=== PATIENT | male | born 1995 | race Two or more races ===

== ENCOUNTER 2024-02-14 12:09 | Emergency (ER) | payer OTHER, SELFPAY ==
--- NOTE | ~2024-02-14 | CT_ITS ---
EXAMINATION: CT SOFT TISSUE NECK WITH CONTRAST CLINICAL INFORMATION: Left parotid swelling. COMPARISON: There are no prior studies available for comparison. TECHNIQUE: Following the intravenous administration of 60 mL of Omnipaque 350 intravenous contrast, helical imaging was performed in the axial plane with generation of coronal and sagittal reformatted images. A few noncontrast images were obtained through the region of interest with a BB marker in place. This CT examination was performed using dose optimization techniques as appropriate, variously including the following: *Automated exposure control *Adjustment of mA and/or kV according to patient size (this includes techniques or standardized protocols for targeted exams where dose is matched to indication/reason for exam; i.e. extremities or head) *Use of iterative reconstruction technique DLP: 706 mGy-cm FINDINGS: There is a 2.4 x 3.3 x 4.1 cm (oblique AP, transverse and craniocaudal) mass in the superficial lobe of the parotid gland, and extends through the mandibular notch. It has low but heterogenous attenuation. There is no cervical lymphadenopathy. There are small lymph nodes at multiple levels in the neck bilaterally. The right parotid gland and the bilateral submandibular glands appear normal. No contour abnormality or pathologic enhancement is seen within the oral cavity or pharyngeal mucosal space. The laryngeal structures are normal. The parapharyngeal fat is preserved. The carotid sheath vasculature opacifies normally. No extra mucosal soft tissue mass or fluid collection is seen. No retropharyngeal fluid collection is seen. The thyroid gland is normal. The left vertebral artery arises directly off the aortic arch which is a normal variant. The visualized upper lung tejada are well-aerated. The mastoid air cells are well-aerated. There is moderate to extensive circumferential mucoperiosteal thickening with aerosolized secretions in the left maxillary sinus; there is also a fluid level. Mucoperiosteal thickening is also seen in the right maxillary and bilateral ethmoid sinuses. The temporomandibular joints are normal. No periapical disease is identified. The cervical spine appears normal. The imaged portions of the brain parenchyma are unremarkable. CT/CT soft tissue neck w IV con IMPRESSION: 1. There is a 4.1 cm mass in the superficial lobe of the left parotid gland, extending through the mandibular notch. This may be consistent with a pleomorphic adenoma, but other etiologies cannot be excluded. 2. There is no cervical lymphadenopathy. No other masses are demonstrated. 3. There is paranasal sinus disease as described above.
[2024-02-14 12:20] VITALS: BP 149/105; PULSE 70; RESP 18; TEMP 36.6; O2SAT 97; BMI 23.6
--- NOTE | 2024-02-14 12:20 | ED.GENADULT ---
HPI - General Adult General Chief complaint: Urogenital-Male Stated complaint: Blood in urine/R side facial pain Time Seen by Provider: 02/14/24 12:47 Source: patient and RN notes reviewed Mode of arrival: ambulatory Limitations: no limitations History of Present Illness ED Provider: Keisha Romero PA-C HPI narrative: This is a 28-year-old male, with no known medical problems, who presents emergency department complaints of left-sided facial swelling for the last year and a half, dysuria x 2 days. Patient reports that after he received the COVID vaccine a year and a half ago he noticed left-sided facial swelling. He states that this has increased in size and he has never had this imaged. He reports that the area is painful. He also reports that over the last 2 days he has had dysuria, and slight blood in the urine. He also reports some blood after having sexual intercourse. He denies any new partners. He denies any fevers, chills, chest pain, shortness of breath, abdominal pain, nausea, vomiting or diarrhea. No significant weight changes. No night sweats. He has also endorsing a itchy rash to the back of his neck and in between his fingers. He cleans houses for a living and states that he believes he was in contact with bedbugs or something causing an allergy. No other complaints or concerns at this time. MD complaint: Facial swelling, dysuria Pain Consistency: constant Relieving factors: none Exacerbating factors: none Associated symptoms: denies other symptoms Treatments prior to arrival: none Related Data Previous Rx's ?Medication ?Instructions ?Recorded doxycycline hyclate 100 mg tablet 100 mg PO BID 7 days #13 tabs 02/14/24 diphenhydramine HCl 25 mg capsule 25 mg PO TID PRN itching #20 caps 02/15/24 permethrin 5 % topical cream 1 appl topical Q14D 2 doses #60 02/15/24 grams Allergies Allergy/AdvReac Type Severity Reaction Status Date / Time No Known Allergies Allergy Verified 02/14/24 12:23 Review of Systems Review of Systems: Yes all other systems are reviewed and are negative Constitutional: Constitutional: Reports as per [facility] Social History Social History Smoked in Last 30 Days: No Use of substances other than those prescribed or required for medical reasons: Yes Substance Use Type: Crack/Cocaine Advance Directives: No Advance Directives Information Provided: Yes Physical Exam ED Vital Signs: Vital Signs - 24 hr 02/14/24 12:20 02/14/24 15:12 Temperature 97.9 F 98.1 F Pulse Rate 70 59 Respiratory Rate 18 16 Blood Pressure 149/105 H 139/50 L Pulse Oximetry 97 97 Oxygen Delivery Method Room Air Room Air BMI result Body Mass Index 23.6 Const General: cooperative, comfortable and no acute distress Orientation/consciousness: patient oriented x3 Limitations: no limitations HENMT Head: Yes normal to inspection, Yes normocephalic and Yes atraumatic Ears: hearing grossly normal bilaterally General nose exam: Normal external nose present Face and sinus: Yes normal facial exam Mouth: Normal oral and palatal mucosa present, oropharynx normal and moist mucous membranes Throat: Yes posterior oropharynx normal Eyes General: appearance normal, both eyes and all related structures Eyelids: Yes eyelids normal Conjunctivae: conjunctivae normal Sclerae: sclerae normal Pupils: Equal, round and reactive pupils present EOM: EOMs intact bilaterally Neck Other: Left parotid region there is a large indurated mass, non mobile. No surrounding erythema or warmth. No anterior-posterior lymphadenopathy noted or subclavicular lymphadenopathy noted Lymphatic: no lymphadenopathy noted Chest Chest palpation & inspection: normal inspection of the chest Resp Effort & Inspection: normal respiratory effort and able to speak in complete sentences Auscultation: clear to auscultation bilaterally, no crackles, no rales, no rhonchi and no wheezes Cardio Rate: regular rate Rhythm: regular rhythm Heart sounds: S1 normal heart sound present and S2 normal heart sound present GI Inspection: Yes normal to inspection Skin General skin exam: no rashes or lesions noted Trauma: no lacerations or abrasions Wounds: no wounds Neuro General: patient oriented x3 and moves all extremities Cranial nerves: Yes Equal, round and reactive pupils present Extrem General: Yes normal to inspection Right upper extremity: normal to inspection Left upper extremity: normal to inspection Right lower extremity: normal to inspection Left lower extremity: normal to inspection Course Course Course Narrative: This is a rapid medical exam performed by Mansi Shaikh NP: Additional HPI, ROS, PE not included below will be deferred to primary provider. Patient is a 28-year-old male presenting to the ED with complaint of hematuria, left lower back pain. Denies fevers. Also reports right sided facial pain/swelling since having Covid over one year ago. Plan: labs, UA, CT NG urine Reevaluation(s) Reevaluation #1: Urine returns, there is high wbc's, moderate leuk esterases moderate blood. This does appear to be contaminated. Patient wanting treatment for STIs. Will treat with ceftriaxone and doxycycline. Will await urine culture to ensure that this is not a urinary tract infection. Discussed findings with patient. CT of the soft tissue neck revealing a 4.1cm mass in the superficial lobe of the left parotid gland extending through the mandibular notch. Consistent with a pleomorphic adenoma however other etiologies can not be excluded. I discussed findings with my attending physician, recommending ENT follow-up. There is no emergent interventions warranted at this time however I stressed with patient to call ENT tomorrow for further workup. He understands and agrees with plan. Patient given strict return precautions. He understands and agrees with plan. Patient stable for discharge. Time: 17:03 Reevaluation #2: Attempted to call patient as patient is chlamydia test was positive. He was treated appropriately. His phone number is out of service. Called emergency contact, Maritza, and instructed her to call her brother to have him contact the ER Reevaluation #3: pt returned call, given results from +chlamydia testing, advised to continue treatment and to inform all partners of test. He understands and has no further questions. Medications Administered Discontinued Medications Generic Name Dose Route Start Last Admin Trade Name Rosa PRN Reason Stop Dose Admin Ceftriaxone Sodium 500 mg/ 0 mg 02/14/24 16:55 02/14/24 17:25 Lidocaine HCl 1 ml IM 02/14/24 16:56 500 kit ONCE ONE Administration Doxycycline Monohydrate 100 mg 02/14/24 16:55 02/14/24 17:25 Doxycycline Monohydrate 100 Mg Capsule PO 02/14/24 16:56 100 mg ONCE ONE Administration Iohexol 100 ml 02/14/24 14:11 02/14/24 14:12 Iohexol 350 Mg/Ml 100 Ml Infus..Btl IV 02/14/24 14:12 60 ml ONCE ONE Administration Medical Decision Making Medical Decision Making MDM Narrative: This is a 28-year-old male who presents to the emergency department with complaints of rash, mass on the left side of his neck, and dysuria. Patient states that he cleaned out a home 2 weeks ago and developed a itchy rash. On examination, patient has faint macular papular rash noted to the back of neck, and webspace of fingers, no palmar erythema or rash noted. On arrival, vital signs within normal limits. Patient does have a large left-sided parotid area indurated mass noted, speaking in full sentences, under no acute respiratory distress. Patient was examined by my attending physician, Dr. Peter . Will obtain basic labs, UA, CT NG, and CT soft tissue of the neck. Differential Diagnosis Differential Diagnoses: The differential diagnosis associated with the presentation includes Malignancy, mass, parotitis, sialadenitis Admission/Observation Consideration of admission/observation: Escalation of care including admission/observation considered Escalation of care including admission/observation considered however given workup today not warranted at this time. Lab Data MDM Lab Attestation statement: I reviewed the patient's lab results. No leukocytosis, stable H&H, chemistry within normal limits. Urine with high specific gravity, moderate blood, moderate leuk esterases, rbc's, and high wbc's. Chlamydia and gonorrhea testing pending 02/14/24 12:28 02/14/24 12:28 Labs: Lab Results 02/14/24 02/14/24 Range/Units 12:28 15:18 WBC 10.1 (4.8-10.8) X10*3/uL RBC 5.26 (4.60-5.80) X10*6/uL Hgb 16.2 (14.0-18.0) g/dl Hct 46.3 (42.0-52.0) % MCV 88.0 (80.0-98.0) fL MCH 30.8 (27.0-33.0) pg MCHC 35.0 (31.0-36.0) g/dl RDW 12.4 (11.0-16.0) % Plt Count 221 (160-400) X10*3/uL MPV 9.3 L (9.4-12.4) fL Immature Gran % (Auto) 0.8 H (0.0-0.4) % Neut % (Auto) 54.5 (45-73) % Lymph % (Auto) 29.2 (20-40) % [place] % (Auto) 11.0 (2-11) % Eos % (Auto) 3.8 (0-4) % Baso % (Auto) 0.7 (0-2) % Lymph # (Auto) 3.0 (1.2-4.9) X10*3/uL [place] # (Auto) 1.1 (0.1-1.2) X10*3/uL Eos # (Auto) 0.4 (0.0-0.4) X10*3/uL Baso # (Auto) 0.1 (0.0-0.2) X10*3/uL Abs Immat Gran (auto) 0.08 H (0.00-0.03) X10*3/uL Absolute Neuts (auto) 5.5 (2.0-8.3) x10*3/uL Absolute Nucleated RBC 0.000 (0.0-0.012) X10*3/uL Nucleated RBC % (auto) 0.0 (0.0-0.2) /100WBC Sodium 140 (135-145) mmol/L Potassium 4.1 (3.3-5.1) mmol/L Chloride 108 (96-108) mmol/L Carbon Dioxide 25 (22-29) mmol/L Anion Gap 11 L (12-20) BUN 12 (9-16) mg/dL Creatinine 0.95 (0.5-1.4) mg/dL Estim Creat Clear Calc 111.0 Estimated GFR > 60 Random Glucose 94 (60-115) mg/dL Calcium 9.7 (8.4-10.2) mg/dL Total Bilirubin 0.3 (0.0-1.0) mg/dL AST 35 (5-37) U/L ALT 29 (0-40) U/L Alkaline Phosphatase 76 (39-117) U/L Total Protein 7.7 (6.5-8.0) g/dL Albumin 4.5 (3.5-5.0) g/dL Urine Color Yellow Urine Appearance Clear Urine pH 6.0 (5.0-9.0) Ur Specific [place] >= 1.030 H (1.005-1.025) Urine Protein Trace (Neg-Trace) mg/dL Urine Glucose (UA) Negative (Negative) mg/dL Urine Ketones Negative (Negative) mg/dL Urine Blood Moderate (2+) H (Negative) Urine Nitrite Negative (Negative) Ur Leukocyte Esterase Moderate (2+) H (Negative) Urine RBC 6-10 H (0-2) /HPF Urine WBC >50 H (0-5) /HPF Ur Squamous Epith Cells 3-5 (0-2) /HPF Urine Bacteria None Seen (None Seen) Hyaline Casts 0-2 (0-2) /LPF Chlam trachomat DNA PCR DETECTED A (Not Detect.) N.gonorrhoeae DNA (PCR) NOT DETECTED (Not Detect.) Radiology Impression Discussion of test interpretation with radiology: I have reviewed the radiologist's reading. Radiologist Impression: CT/CT soft tissue neck w IV con IMPRESSION: 1. There is a 4.1 cm mass in the superficial lobe of the left parotid gland, extending through the mandibular notch. This may be consistent with a pleomorphic adenoma, but other etiologies cannot be excluded. 2. There is no cervical lymphadenopathy. No other masses are demonstrated. 3. There is paranasal sinus disease as described above. Dictated By: KWASI ARSHAD MD External Record Review External record reviewed: Inpatient record, Office record, Outpatient record, Prior outpatient labs, Prior outpatient radiology, Primary care record and Outside ED record Discharge Plan Discharge Clinical Impression: Dysuria, Rash Patient Disposition: Home, Self-Care Instructions: Acute Rash (ED), Dysuria (ED) Additional Instructions: You were seen in the ER for left-sided facial swelling. 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 Please call ENT tomorrow to make an appointment. I also gave you a medication to treat for gonorrhea or chlamydia. We sent your urine out for further testing to test for this however this is not back. We will call you if we need to change the antibiotics that you are on. Please take doxycycline as prescribed, please start this tomorrow as you already received your 1st dose today. Avoid sexual intercourse until you complete your antibiotics. Drink plenty of fluids get plenty of rest. I am also prescribing you Benadryl to help with itching rash. I am also prescribing permethrin, this helps eradicate scabies. The starts not appear to be scabies/insect related however please use medication as prescribed Prescriptions: New doxycycline hyclate 100 mg tablet 100 mg PO BID 7 Days Qty: 13 0RF Rx Instructions: Received 1st dose in department on 02/13 @ 5:30PM diphenhydramine HCl 25 mg capsule 25 mg PO TID PRN (Reason: itching) Qty: 20 0RF permethrin 5 % cream 1 appl topical Q14D Qty: 60 0RF Rx Instructions: apply second treatment 14 days after first treatment if live lice remain Referrals: Shaheed Rivera MD [Physician] - Interventions: ED Discharge Assessment Last Done: 02/14/24 17:40 Discharge Date/Time: 02/14/24 18:31 Print Language: Armenian
[2024-02-14 12:34] LABS: MANUAL DIFF FLAG NO
[2024-02-14 12:50] LABS: Basophils Absolute Auto 0.1 X10*3/uL (0.0-0.2); Basophils Percent Auto 0.7 % (0-2); Eosinophils Absolute Auto 0.4 X10*3/uL (0.0-0.4); Eosinophils Percent Auto 3.8 % (0-4); Hematocrit 46.3 % (42.0-52.0); Hemoglobin 16.2 g/dl (14.0-18.0); Imm Gran Abs Auto 0.08 X10*3/uL (0.00-0.03); Imm Gran Pct Auto 0.8 % (0.0-0.4); Lymphocytes Percent Auto 29.2 % (20-40); Mean Corpuscular Hemoglobin 30.8 pg (27.0-33.0); Mean Platelet Volume 9.3 fL (9.4-12.4); Monocytes Absolute Auto 1.1 X10*3/uL (0.1-1.2); Neutrophils Absolute Auto 5.5 x10*3/uL (2.0-8.3); Neutrophils Percent Auto 54.5 % (45-73); Platelet Count 221 X10*3/uL (160-400); Red Blood Count 5.26 X10*6/uL (4.60-5.80); Red Cell Distribution Width 12.4 % (11.0-16.0); White Blood Count 10.1 X10*3/uL (4.8-10.8)
[2024-02-14 13:01] LABS: Alanine Aminotransferase 29 U/L (0-40); Albumin Level 4.5 g/dL (3.5-5.0); Alkaline Phosphatase 76 U/L (39-117); Anion Gap 11 (12-20); Aspartate Amino Transferase 35 U/L (5-37); Bilirubin Total 0.3 mg/dL (0.0-1.0); Blood Urea Nitrogen 12 mg/dL (9-16); Calcium 9.7 mg/dL (8.4-10.2); Carbon Dioxide 25 mmol/L (22-29); Chloride 108 mmol/L (96-108); Estimated Glomerular Filt Rate > 60; Glucose Random 94 mg/dL (60-115); Potassium 4.1 mmol/L (3.3-5.1); Sodium 140 mmol/L (135-145); Total Protein 7.7 g/dL (6.5-8.0)
--- NOTE | 2024-02-14 13:25 | PC.NURSE ---
Pt reports blood in urine X3 days, small amounts, also reports blood in ejaculation. Denies any pain or foul smells, no ABD pain or pain with urination. 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 Rash only noted to back. Alert and oriented, breathing even and unlabored.
[2024-02-14] MEDS: iohexoL 350 MG/ML 100 ML INFUS..BTL IV (14:12)
[2024-02-14 15:12] VITALS: BP 139/50; PULSE 59; RESP 16; TEMP 36.7; O2SAT 97
[2024-02-14 15:46] LABS: Appearance Urine Clear; Color Urine Yellow; Glucose Urine UA Negative (Negative); Leukocyte Esterase Urine Moderate (2+) (Negative); Nitrite Urine Negative (Negative); Specific Gravity - Urine >= 1.030 (1.005-1.025); UMIC TRIGGER UACC YES; Urine Blood Moderate (2+) (Negative); Urine Ketones Negative (Negative); Urine Protein Trace mg/dL (Neg-Trace)
[2024-02-14 16:25] LABS: Bacteria Urine None Seen (None Seen); Hyaline Casts Urine 0-2 /LPF (0-2); UACC Culture Trigger YES; WBC Urine >50 /HPF (0-5)
[2024-02-14] MEDS: cefTRIAXone sodium 500 MG, Lidocaine HCl 1 % MPF 1 ML IM (17:25)
[2024-02-14] MEDS: Doxycycline Monohydrate 100 MG CAPSULE PO (17:25)
[2024-02-14 17:27] VITALS: BP 162/91; PULSE 64; RESP 16; TEMP 36.8; O2SAT 97
[2024-02-14 17:40] VITALS: BP 162/91; PULSE 64; RESP 16; TEMP 36.8; O2SAT 97
[2024-02-15 02:19] LABS: CT PCR DETECTED (Not Detect.); NG PCR NOT DETECTED (Not Detect.)
== END 2024-02-14 18:31 | disposition home or self-care (01) ==
PROVIDERS: Registered Nurse Emergency; Emergency Provider Student in an Organized Health Care Education/Training Program
DX: R30.0 Dysuria (principal); R21 Rash and other nonspecific skin eruption; A74.9 Chlamydial infection, unspecified; K11.8 Other diseases of salivary glands
CPT/HCPCS: 0353U; 36415; 70491; 80053; 81001; 81003; 85025; 87086; 96372; 99284; J0696; Q9967